=== PATIENT | male | born 1970 | race Two or more races ===

== ENCOUNTER 2023-06-07 20:56 | Inpatient (IN) | payer MEDICAID, OTHER ==
[~2023-06-07] VITALS: Ht 175.3 cm; Wt 90.3 kg
[2023-06-07 22:01] LABS: BASOPHILS # (AUTO) 0.1 K/uL (0.0-0.2); BASOPHILS % (AUTO) 0.4 % (0.0-2.0); EOSINOPHILS # (AUTO) 0.5 K/uL (0.0-0.7); EOSINOPHILS % (AUTO) 3.7 % (0.0-6.0); HEMATOCRIT 27 % (39-51); HEMOGLOBIN 8.4 g/dL (13.5-17.5); LYMPHOCYTES # (AUTO) 1.1 K/uL (0.8-4.8); LYMPHOCYTES % (AUTO) 7.8 % (20.0-44.0); MEAN CORPUSCULAR HEMOGLOBIN 26 PG (26.0-33.0); MEAN CORPUSCULAR HGB CONC 32 g/dl (31.0-36.0); MEAN CORPUSCULAR VOLUME 82 fL (80-96); MONOCYTES # (AUTO) 1.4 K/uL (0.1-1.30); MONOCYTES % (AUTO) 10.1 % (2.0-12.0); NEUTROPHILS # (AUTO) 10.6 K/uL (1.8-8.9); PLATELET COUNT (AUTO) 688 K/uL (150-450); RED BLOOD CELL COUNT(AUTO) 3.22 MIL/uL (4.5-6.0); RED CELL DISTRIBUTION WIDTH 15.7 % (11.5-15.0); WHITE BLOOD COUNT (AUTO) 13.6 K/uL (4.3-11.0)
[2023-06-07 22:10] LABS: INR 1.15 (0.91-1.10); PROTHROMBIN TIME 12.1 SECS (9.2-11.1)
[2023-06-07 22:20] LABS: CALCIUM, SERUM 8.8 mg/dL (8.5-10.1); CARBON DIOXIDE 27 mmol/L (21-32); CHLORIDE 96 mmol/L (98-107); CREATININE 0.7 mg/dL (0.6-1.3); GLUCOSE 120 mg/dL (74-106); POTASSIUM 4.3 mmol/L (3.5-5.1); SODIUM SERUM 130 mmol/L (136-145); UREA NITROGEN, BLOOD 13 mg/dL (7-18)
[2023-06-07 22:32] LABS: NT-PRO BNP 423 pg/mL (0-125)
[2023-06-07 23:17] LABS: BASOPHILS % (MANUAL) 0 % (0.0-2.0); EOSINOPHILS % (MANUAL) 2 % (0-4); LYMPHOCYTES % (MANUAL) 8 % (16-48); MONOCYTES % (MANUAL) 11 % (0-11.0); NEUTROPHILS % (MANUAL) 79 (42-76)
[2023-06-07 23:18] LABS: ANISOCYTOSIS 1+; PLATELET ESTIMATE ADEQUATE; STOMATOCYTES 1+
[2023-06-07] MEDS ORDERED: IV NS 0.9% 500 ML IV ONE (23:30)
[2023-06-07] MEDS ORDERED: PIPERACILLIN /TAZOBACTAM 3.375 G in IV D5W 50 ML IV ONE (23:30)
[2023-06-07] MEDS ORDERED: VANCOMYCIN 1 GM in IV D5W 250 ML IV ONE (23:30)
[2023-06-07] MEDS ORDERED: PIPERACI/TAZO 3.375GM/D5W 50ML PB IV ONE (23:36)
[2023-06-07] MEDS ORDERED: VANCOMYCIN 1 GM /D5W 250 ML PB IV ONE (23:56)
[2023-06-08] MEDS ORDERED: RIVA10TA PO (00:07)
[2023-06-08] MEDS ORDERED: HYDR-4075 PO (00:07)
[2023-06-08] MEDS ORDERED: ATOR20TA PO (00:07)
[2023-06-08] MEDS ORDERED: LACT10SO3 PO (00:07)
[2023-06-08] MEDS ORDERED: MAGN400T8 PO (00:07)
[2023-06-08] MEDS ORDERED: CHLO473M3 PO (00:07)
[2023-06-08] MEDS ORDERED: CALC-770 PO (00:07)
[2023-06-08] MEDS ORDERED: SUCR1ORA15 PO (00:07)
[2023-06-08] MEDS ORDERED: CHOL400T2 (00:07)
[2023-06-08] MEDS ORDERED: AMLO-212 PO (00:07)
[2023-06-08] MEDS ORDERED: ALBU2.5V13 NEB (00:07)
[2023-06-08] MEDS ORDERED: PHEN100C4 PO (00:07)
[2023-06-08] MEDS ORDERED: MULT9LIQ6 PO (00:07)
[2023-06-08] MEDS ORDERED: CARV12.52 PO (00:07)
[2023-06-08] MEDS ORDERED: PANT40TA49 PO (00:07)
[2023-06-08] MEDS ORDERED: ASCO500W7 PO (00:07)
[2023-06-08] MEDS ORDERED: CLOP75TA15 PO (00:07)
[2023-06-08 01:00] VITALS: BP 116/75; TEMP 99.1; O2SAT 100
[2023-06-08] MEDS ORDERED: MAG HYDROX/AL HYDROX/SIMETH 30 ML UDC PO PRN (01:00)
[2023-06-08] MEDS ORDERED: ACETAMINOPHEN 325 MG TABLET PO PRN (01:00)
[2023-06-08] MEDS ORDERED: ZOLPIDEM TARTRATE 5 MG TABLET PO PRN (01:00)
[2023-06-08] MEDS ORDERED: MAGNESIUM HYDROXIDE 30 ML UDC PO PRN (01:00)
[2023-06-08] MEDS ORDERED: ONDANSETRON HCL/PF 4 MG/2 ML VIAL IVP PRN (01:00)
[2023-06-08] MEDS ORDERED: Z GUARD REMEDY 4 OZ OINT TP PRN (01:00)
[2023-06-08] MEDS ORDERED: hydrALAZINE HCL 10 MG TABLET PO SCH (01:00)
[2023-06-08] MEDS: ALBUTEROL FS 2.5 MG/0.5 ML VIAL.NEB NEB SCH ×4 (02:20→20:16)
[2023-06-08] MEDS: IPRATROPIUM NEB FS 0.5 MG/2.5 ML AMPUL.NEB NEB SCH ×4 (02:20→20:16)
[2023-06-08] MEDS ORDERED: PHARMACY TO CHANGE PO MEDS TO GT/NG XX PRN (02:30)
[2023-06-08] MEDS ORDERED: CEFEPIME 2 GM in IV D5W 100 ML IV ONE (02:30)
[2023-06-08] MEDS ORDERED: hydrALAZINE HCL 10 MG TABLET PO PRN (02:30)
[2023-06-08] MEDS ORDERED: INSULIN REGULAR, HUMAN 100 UNIT/ML 3 ML VIAL SQ PRN (02:30)
[2023-06-08] MEDS ORDERED: DEXTROSE 50%-WATER 50 ML DISP.SYRIN IV PRN ×2 (02:30)
[2023-06-08] MEDS ORDERED: CEFEPIME 1 GM VIAL ONE (02:47)
[2023-06-08] MEDS ORDERED: MAG HYDROX/AL HYDROX/SIMETH 30 ML UDC GT PRN (03:21)
[2023-06-08] MEDS ORDERED: MAGNESIUM HYDROXIDE 30 ML UDC GT PRN (03:21)
[2023-06-08] MEDS ORDERED: ZOLPIDEM TARTRATE 5 MG TABLET GT PRN (03:22)
[2023-06-08] MEDS ORDERED: ACETAMINOPHEN 650 MG/20.3 ML UDC GT PRN (03:30)
[2023-06-08] MEDS ORDERED: hydrALAZINE HCL 10 MG TABLET GT PRN (03:50)
[2023-06-08 03:55] VITALS: BP 103/73; TEMP 98.3; O2SAT 100
[2023-06-08] MEDS: BLOOD SUGAR DIAGNOSTIC 1 EACH STRIP IN SCH ×3 (06:12→17:46)
[2023-06-08] MEDS: INSULIN REGULAR, HUMAN 100 UNIT/ML 3 ML VIAL SQ PRN ×3 (06:13→17:47)
[2023-06-08 07:30] VITALS: BP 125/71; TEMP 98.5; O2SAT 100
[2023-06-08] MEDS ORDERED: BLOOD SUGAR DIAGNOSTIC 1 EACH STRIP IN SCH (07:30)
[2023-06-08] MEDS: SUCRALFATE 1 G/10 ML UDC GT SCH ×4 (08:02→22:09)
[2023-06-08] MEDS: RIVAROXABAN 15 MG TABLET GT SCH ×2 (08:03→17:24)
[2023-06-08] MEDS: LACTULOSE 10 G/15 ML UDC (PYXIS) GT SCH ×2 (08:49→17:23)
[2023-06-08] MEDS: CHLORHEXIDINE GLUCONATE 15 ML UDC MM SCH ×2 (08:49→17:23)
[2023-06-08] MEDS: CALCIUM CARB 600MG /VIT D 1 EACH TABLET GT SCH ×2 (08:50→17:23)
[2023-06-08] MEDS: AMLODIPINE BESYLATE 5 MG TABLET GT SCH (08:50)
[2023-06-08] MEDS: MULTIVIT W/MINERALS 1 TAB TABLET GT SCH (08:50)
[2023-06-08] MEDS: MAGNESIUM OXIDE 400 MG TABLET GT SCH ×2 (08:50→17:23)
[2023-06-08] MEDS: CARVEDILOL 12.5 MG TABLET GT SCH ×2 (08:50→22:12)
[2023-06-08] MEDS: PHENYTOIN SUSP UDC 100 MG/4 ML UDC GT SCH ×2 (08:50→22:09)
[2023-06-08] MEDS: PROSOURCE / PROSTAT (PYXIS) 30 ML UDC GT SCH (08:52)
[2023-06-08 08:55] LABS: BASOPHILS % (AUTO) 0.3 % (0.0-2.0); EOSINOPHILS # (AUTO) 0.5 K/uL (0.0-0.7); EOSINOPHILS % (AUTO) 3.8 % (0.0-6.0); HEMATOCRIT 26 % (39-51); HEMOGLOBIN 8.5 g/dL (13.5-17.5); LYMPHOCYTES # (AUTO) 1.4 K/uL (0.8-4.8); LYMPHOCYTES % (AUTO) 11.4 % (20.0-44.0); MEAN CORPUSCULAR HEMOGLOBIN 27 PG (26.0-33.0); MEAN CORPUSCULAR HGB CONC 32 g/dl (31.0-36.0); MEAN CORPUSCULAR VOLUME 83 fL (80-96); MONOCYTES # (AUTO) 1.5 K/uL (0.1-1.30); MONOCYTES % (AUTO) 11.6 % (2.0-12.0); NEUTROPHILS # (AUTO) 9.2 K/uL (1.8-8.9); NEUTROPHILS % (AUTO) 72.9 % (43.0-81.0); PLATELET COUNT (AUTO) 691 K/uL (150-450); RED BLOOD CELL COUNT(AUTO) 3.19 MIL/uL (4.5-6.0); RED CELL DISTRIBUTION WIDTH 15.4 % (11.5-15.0); WHITE BLOOD COUNT (AUTO) 12.6 K/uL (4.3-11.0)
[2023-06-08] MEDS ORDERED: PANTOPRAZOLE 40 MG TABLET.DR PO SCH (09:00)
[2023-06-08] MEDS ORDERED: PANTOPRAZOLE 40 MG VIAL IV SCH (09:00)
[2023-06-08 09:35] LABS: CALCIUM, SERUM 9.2 mg/dL (8.5-10.1); CREATININE 0.7 mg/dL (0.6-1.3); MAGNESIUM 2.4 mg/dL (1.8-2.4); PHOSPHORUS 4.1 mg/dL (2.5-4.9)
[2023-06-08] MEDS: VANCOMYCIN 1.25 GM in IV D5W 250 ML IV SCH ×2 (10:24→18:10)
[2023-06-08] MEDS: DAKINS QUARTER STRENGTH (0.125%) 480 ML BOTTLE TOP SCH ×2 (10:25→16:00)
[2023-06-08] MEDS: CEFEPIME 2 GM in IV D5W 100 ML IV SCH ×2 (12:20→21:54)
[2023-06-08] MEDS: GLUCERNA 1.2 1,000 ML BOTTLE NG PRN (12:24)
[2023-06-08 16:00] VITALS: BP 129/62; TEMP 98.6; O2SAT 100
[2023-06-08 21:41] VITALS: BP 126/60; TEMP 98.4; O2SAT 100
[2023-06-08] MEDS: ASCORBIC ACID 500 MG TABLET GT SCH (22:10)
[2023-06-08] MEDS: CLOPIDOGREL BISULFATE 75 MG TABLET GT SCH (22:10)
[2023-06-08] MEDS: ATORVASTATIN 10 MG TABLET GT SCH (22:10)
[2023-06-09] MEDS: BLOOD SUGAR DIAGNOSTIC 1 EACH STRIP IN SCH ×4 (00:08→17:26)
[2023-06-09 00:23] VITALS: BP 132/69; TEMP 98.2; O2SAT 100
[2023-06-09] MEDS: INSULIN REGULAR, HUMAN 100 UNIT/ML 3 ML VIAL SQ PRN (00:28)
[2023-06-09] MEDS: ALBUTEROL FS 2.5 MG/0.5 ML VIAL.NEB NEB SCH ×4 (01:03→20:55)
[2023-06-09] MEDS: IPRATROPIUM NEB FS 0.5 MG/2.5 ML AMPUL.NEB NEB SCH ×4 (01:03→20:55)
[2023-06-09] MEDS: VANCOMYCIN 1.25 GM in IV D5W 250 ML IV SCH ×3 (03:00→23:00)
[2023-06-09] MEDS: CEFEPIME 2 GM in IV D5W 100 ML IV SCH ×3 (05:09→21:08)
[2023-06-09 06:32] VITALS: BP 135/90; TEMP 98; O2SAT 100
[2023-06-09 07:05] LABS: BASOPHILS % (AUTO) 0.3 % (0.0-2.0); EOSINOPHILS # (AUTO) 0.5 K/uL (0.0-0.7); HEMATOCRIT 23 % (39-51); HEMOGLOBIN 7.7 g/dL (13.5-17.5); LYMPHOCYTES # (AUTO) 1.2 K/uL (0.8-4.8); LYMPHOCYTES % (AUTO) 12.6 % (20.0-44.0); MEAN CORPUSCULAR HEMOGLOBIN 27 PG (26.0-33.0); MEAN CORPUSCULAR HGB CONC 33 g/dl (31.0-36.0); MEAN CORPUSCULAR VOLUME 82 fL (80-96); MONOCYTES # (AUTO) 1.1 K/uL (0.1-1.30); MONOCYTES % (AUTO) 11.1 % (2.0-12.0); NEUTROPHILS # (AUTO) 6.9 K/uL (1.8-8.9); PLATELET COUNT (AUTO) 625 K/uL (150-450); RED BLOOD CELL COUNT(AUTO) 2.85 MIL/uL (4.5-6.0); RED CELL DISTRIBUTION WIDTH 15.5 % (11.5-15.0); WHITE BLOOD COUNT (AUTO) 9.7 K/uL (4.3-11.0)
[2023-06-09] MEDS ORDERED: LIDOCAINE 1%-EPI 1:100,000 20 ML VIAL TP ONE (07:30)
[2023-06-09] MEDS ORDERED: SILVER NITRATE APPLICATOR 1 EA BOX TP SCH (07:30)
[2023-06-09 07:35] LABS: THYROID STIMULATING HORMONE 3.056 uIU/mL (0.358-3.74); URIC ACID 3.6 mg/dL (2.6-7.2)
[2023-06-09 07:36] LABS: CREATININE 0.7 mg/dL (0.6-1.3); MAGNESIUM 2.2 mg/dL (1.8-2.4); PHOSPHORUS 4.3 mg/dL (2.5-4.9); POTASSIUM 4.1 mmol/L (3.5-5.1)
[2023-06-09 08:00] VITALS: BP 137/61; TEMP 98.6; O2SAT 100
[2023-06-09] MEDS: RIVAROXABAN 15 MG TABLET GT SCH ×2 (08:00→18:13)
[2023-06-09] MEDS: DAKINS QUARTER STRENGTH (0.125%) 480 ML BOTTLE TOP SCH ×2 (08:44→08:54)
[2023-06-09] MEDS: PROSOURCE / PROSTAT (PYXIS) 30 ML UDC GT SCH (08:44)
[2023-06-09] MEDS: LACTULOSE 10 G/15 ML UDC (PYXIS) GT SCH ×2 (08:45→17:25)
[2023-06-09] MEDS: SUCRALFATE 1 G/10 ML UDC GT SCH ×4 (08:45→21:42)
[2023-06-09] MEDS: CHLORHEXIDINE GLUCONATE 15 ML UDC MM SCH ×2 (08:45→17:25)
[2023-06-09] MEDS: PHENYTOIN SUSP UDC 100 MG/4 ML UDC GT SCH ×2 (08:45→21:05)
[2023-06-09] MEDS: PANTOPRAZOLE 40 MG/PACK PACK NG SCH (08:46)
[2023-06-09] MEDS: CALCIUM CARB 600MG /VIT D 1 EACH TABLET GT SCH ×2 (08:46→17:25)
[2023-06-09] MEDS: MAGNESIUM OXIDE 400 MG TABLET GT SCH ×2 (08:46→17:25)
[2023-06-09] MEDS: MULTIVIT W/MINERALS 1 TAB TABLET GT SCH (08:47)
[2023-06-09] MEDS: AMLODIPINE BESYLATE 5 MG TABLET GT SCH (08:51)
[2023-06-09] MEDS: CARVEDILOL 12.5 MG TABLET GT SCH ×2 (08:52→21:05)
[2023-06-09] MEDS ORDERED: CELLULOSE,OXIDIZED 1 EACH EACH MC STA (12:28)
[2023-06-09 16:00] VITALS: BP 125/62; TEMP 98.5; O2SAT 99
[2023-06-09 20:00] VITALS: BP 136/77; TEMP 98; O2SAT 98
[2023-06-09] MEDS: ATORVASTATIN 10 MG TABLET GT SCH (21:42)
[2023-06-09] MEDS: ASCORBIC ACID 500 MG TABLET GT SCH (21:43)
[2023-06-09] MEDS: CLOPIDOGREL BISULFATE 75 MG TABLET GT SCH (21:47)
[2023-06-09] MEDS ORDERED: VANCOMYCIN 1.25 GM in IV D5W 250 ML IV SCH (23:00)
[2023-06-10] VITALS: BP 129/81; TEMP 98.6; O2SAT 100
[2023-06-10] MEDS: BLOOD SUGAR DIAGNOSTIC 1 EACH STRIP IN SCH ×4 (00:18→17:24)
[2023-06-10] MEDS: INSULIN REGULAR, HUMAN 100 UNIT/ML 3 ML VIAL SQ PRN ×4 (00:20→17:25)
[2023-06-10] MEDS: IPRATROPIUM NEB FS 0.5 MG/2.5 ML AMPUL.NEB NEB SCH ×4 (02:10→19:46)
[2023-06-10] MEDS: ALBUTEROL FS 2.5 MG/0.5 ML VIAL.NEB NEB SCH ×4 (02:10→19:46)
[2023-06-10] MEDS: GLUCERNA 1.2 1,000 ML BOTTLE NG PRN (03:18)
[2023-06-10 04:00] VITALS: BP 129/66; TEMP 98.5; O2SAT 100
[2023-06-10] MEDS: CEFEPIME 2 GM in IV D5W 100 ML IV SCH ×3 (05:34→21:17)
[2023-06-10 06:07] LABS: CALCIUM, SERUM 9.2 mg/dL (8.5-10.1); CREATININE 0.7 mg/dL (0.6-1.3); POTASSIUM 4.3 mmol/L (3.5-5.1)
[2023-06-10] MEDS: SUCRALFATE 1 G/10 ML UDC GT SCH ×4 (07:51→21:15)
[2023-06-10] MEDS: PROSOURCE / PROSTAT (PYXIS) 30 ML UDC GT SCH (07:51)
[2023-06-10 08:00] VITALS: BP 133/77; TEMP 97.9; O2SAT 99
[2023-06-10] MEDS: RIVAROXABAN 15 MG TABLET GT SCH ×2 (08:38→17:29)
[2023-06-10] MEDS: CHLORHEXIDINE GLUCONATE 15 ML UDC MM SCH ×2 (08:39→16:20)
[2023-06-10] MEDS: LACTULOSE 10 G/15 ML UDC (PYXIS) GT SCH ×2 (08:39→16:20)
[2023-06-10] MEDS: PHENYTOIN SUSP UDC 100 MG/4 ML UDC GT SCH ×2 (08:39→21:15)
[2023-06-10] MEDS: MAGNESIUM OXIDE 400 MG TABLET GT SCH ×2 (08:39→16:20)
[2023-06-10] MEDS: PANTOPRAZOLE 40 MG/PACK PACK NG SCH (08:39)
[2023-06-10] MEDS: CALCIUM CARB 600MG /VIT D 1 EACH TABLET GT SCH ×2 (08:40→16:20)
[2023-06-10] MEDS: MULTIVIT W/MINERALS 1 TAB TABLET GT SCH (08:40)
[2023-06-10] MEDS: CARVEDILOL 12.5 MG TABLET GT SCH ×2 (08:41→21:14)
[2023-06-10] MEDS: AMLODIPINE BESYLATE 5 MG TABLET GT SCH (08:41)
[2023-06-10] MEDS: DAKINS QUARTER STRENGTH (0.125%) 480 ML BOTTLE TOP SCH (10:31)
[2023-06-10] MEDS: VANCOMYCIN 1.25 GM in IV D5W 250 ML IV SCH ×2 (11:08→23:48)
[2023-06-10 11:13] LABS: BASOPHILS # (AUTO) 0.1 K/uL (0.0-0.2); EOSINOPHILS # (AUTO) 0.4 K/uL (0.0-0.7); EOSINOPHILS % (AUTO) 4.2 % (0.0-6.0); HEMATOCRIT 24 % (39-51); HEMOGLOBIN 7.8 g/dL (13.5-17.5); LYMPHOCYTES # (AUTO) 0.9 K/uL (0.8-4.8); MEAN CORPUSCULAR HEMOGLOBIN 27 PG (26.0-33.0); MEAN CORPUSCULAR HGB CONC 32 g/dl (31.0-36.0); MEAN CORPUSCULAR VOLUME 82 fL (80-96); MONOCYTES # (AUTO) 0.9 K/uL (0.1-1.30); MONOCYTES % (AUTO) 10.2 % (2.0-12.0); NEUTROPHILS # (AUTO) 6.3 K/uL (1.8-8.9); NEUTROPHILS % (AUTO) 73.6 % (43.0-81.0); PLATELET COUNT (AUTO) 636 K/uL (150-450); RED BLOOD CELL COUNT(AUTO) 2.94 MIL/uL (4.5-6.0); RED CELL DISTRIBUTION WIDTH 15.6 % (11.5-15.0); WHITE BLOOD COUNT (AUTO) 8.6 K/uL (4.3-11.0)
[2023-06-10 16:15] VITALS: BP 136/74; TEMP 98.2; O2SAT 99
[2023-06-10 20:00] VITALS: BP 142/54; TEMP 98.1; O2SAT 100
[2023-06-10] MEDS ORDERED: NA PHOS,M-B/NA PHOS,DI-BA 1 EA ENEMA RC ONE (20:00)
[2023-06-10] MEDS: ASCORBIC ACID 500 MG TABLET GT SCH (21:14)
[2023-06-10] MEDS: CLOPIDOGREL BISULFATE 75 MG TABLET GT SCH (21:14)
[2023-06-10] MEDS: ATORVASTATIN 10 MG TABLET GT SCH (21:15)
[2023-06-11] VITALS: BP 131/88; TEMP 98.7; O2SAT 100
[2023-06-11] MEDS: BLOOD SUGAR DIAGNOSTIC 1 EACH STRIP IN SCH ×5 (00:47→23:17)
[2023-06-11 04:00] VITALS: BP 146/77; TEMP 98.5; O2SAT 100
[2023-06-11] MEDS: CEFEPIME 2 GM in IV D5W 100 ML IV SCH ×3 (05:12→20:57)
[2023-06-11 07:00] VITALS: BP 148/71; TEMP 97.9; O2SAT 100
[2023-06-11 07:49] LABS: CALCIUM, SERUM 9.1 mg/dL (8.5-10.1); CREATININE 0.6 mg/dL (0.6-1.3); MAGNESIUM 2.2 mg/dL (1.8-2.4); PHOSPHORUS 4.4 mg/dL (2.5-4.9); POTASSIUM 3.8 mmol/L (3.5-5.1)
[2023-06-11 08:20] LABS: THYROID STIMULATING HORMONE 2.038 uIU/mL (0.358-3.74); URIC ACID 3.5 mg/dL (2.6-7.2)
[2023-06-11] MEDS: SUCRALFATE 1 G/10 ML UDC GT SCH ×4 (09:12→21:24)
[2023-06-11] MEDS: PHENYTOIN SUSP UDC 100 MG/4 ML UDC GT SCH ×2 (09:12→21:24)
[2023-06-11] MEDS: LACTULOSE 10 G/15 ML UDC (PYXIS) GT SCH ×2 (09:13→17:14)
[2023-06-11] MEDS: CARVEDILOL 12.5 MG TABLET GT SCH ×2 (09:13→21:24)
[2023-06-11] MEDS: MULTIVIT W/MINERALS 1 TAB TABLET GT SCH (09:13)
[2023-06-11] MEDS: PANTOPRAZOLE 40 MG/PACK PACK NG SCH (09:13)
[2023-06-11] MEDS: CALCIUM CARB 600MG /VIT D 1 EACH TABLET GT SCH ×2 (09:13→17:14)
[2023-06-11] MEDS: MAGNESIUM OXIDE 400 MG TABLET GT SCH ×2 (09:14→17:14)
[2023-06-11] MEDS: AMLODIPINE BESYLATE 5 MG TABLET GT SCH (09:14)
[2023-06-11] MEDS: RIVAROXABAN 15 MG TABLET GT SCH ×2 (09:15→17:17)
[2023-06-11] MEDS: CHLORHEXIDINE GLUCONATE 15 ML UDC MM SCH ×2 (09:19→17:14)
[2023-06-11] MEDS: PROSOURCE / PROSTAT (PYXIS) 30 ML UDC GT SCH (09:19)
[2023-06-11] MEDS: DAKINS QUARTER STRENGTH (0.125%) 480 ML BOTTLE TOP SCH (09:26)
[2023-06-11] MEDS: GLUCERNA 1.2 1,000 ML BOTTLE NG PRN (09:43)
[2023-06-11 11:30] VITALS: BP 139/80; TEMP 98.2; O2SAT 100
[2023-06-11 13:07] LABS: FERRITIN 176 ng/mL (8-388)
[2023-06-11] MEDS: VANCOMYCIN 1 GM in IV D5W 250 ML IV SCH (14:59)
[2023-06-11 16:00] VITALS: BP 126/81; TEMP 98.4; O2SAT 99
[2023-06-11 20:00] VITALS: BP 125/76; TEMP 99.1; O2SAT 98; O2SAT 99
[2023-06-11] MEDS: ASCORBIC ACID 500 MG TABLET GT SCH (21:24)
[2023-06-11] MEDS: ATORVASTATIN 10 MG TABLET GT SCH (21:25)
[2023-06-11] MEDS: INSULIN REGULAR, HUMAN 100 UNIT/ML 3 ML VIAL SQ PRN (23:18)
[2023-06-12] VITALS (8 sets, daily range): BP systolic 114–138; BP diastolic 63–82; TEMP 98.1–98.6; O2SAT 94–100
[2023-06-12] MEDS: VANCOMYCIN 1 GM in IV D5W 250 ML IV SCH ×2 (02:16→14:32)
[2023-06-12] MEDS: CEFEPIME 2 GM in IV D5W 100 ML IV SCH ×3 (04:19→20:51)
[2023-06-12] MEDS: BLOOD SUGAR DIAGNOSTIC 1 EACH STRIP IN SCH ×3 (05:12→19:59)
[2023-06-12] MEDS: INSULIN REGULAR, HUMAN 100 UNIT/ML 3 ML VIAL SQ PRN ×3 (05:13→19:59)
[2023-06-12 05:49] LABS: BASOPHILS % (AUTO) 0.5 % (0.0-2.0); EOSINOPHILS # (AUTO) 0.6 K/uL (0.0-0.7); EOSINOPHILS % (AUTO) 5.6 % (0.0-6.0); HEMATOCRIT 25 % (39-51); HEMOGLOBIN 7.9 g/dL (13.5-17.5); LYMPHOCYTES # (AUTO) 1.2 K/uL (0.8-4.8); LYMPHOCYTES % (AUTO) 11.7 % (20.0-44.0); MEAN CORPUSCULAR HEMOGLOBIN 26 PG (26.0-33.0); MEAN CORPUSCULAR HGB CONC 32 g/dl (31.0-36.0); MEAN CORPUSCULAR VOLUME 82 fL (80-96); MONOCYTES # (AUTO) 1.1 K/uL (0.1-1.30); MONOCYTES % (AUTO) 11.4 % (2.0-12.0); NEUTROPHILS # (AUTO) 7.1 K/uL (1.8-8.9); NEUTROPHILS % (AUTO) 70.8 % (43.0-81.0); PLATELET COUNT (AUTO) 619 K/uL (150-450); RED CELL DISTRIBUTION WIDTH 15.8 % (11.5-15.0)
[2023-06-12 06:06] LABS: CALCIUM, SERUM 8.9 mg/dL (8.5-10.1); CREATININE 0.7 mg/dL (0.6-1.3); POTASSIUM 4.1 mmol/L (3.5-5.1)
[2023-06-12] MEDS: SUCRALFATE 1 G/10 ML UDC GT SCH ×4 (07:30→21:43)
[2023-06-12] MEDS: PROSOURCE / PROSTAT (PYXIS) 30 ML UDC GT SCH (08:00)
[2023-06-12] MEDS: RIVAROXABAN 15 MG TABLET GT SCH ×2 (08:00→17:49)
[2023-06-12] MEDS: CALCIUM CARB 600MG /VIT D 1 EACH TABLET GT SCH ×3 (08:34→17:56)
[2023-06-12] MEDS ORDERED: IOHEXOL-300 100 ML VIAL IV ONE (09:36)
[2023-06-12] MEDS ORDERED: IV NS 0.9% 250 ML IV ONE (09:36)
[2023-06-12 13:06] LABS: IMMUNOGLOBULIN A, SERUM 771 mg/dL (90-386); IMMUNOGLOBULIN G, SERUM 1982 mg/dL (603-1613); IMMUNOGLOBULIN M, SERUM 66 mg/dL (20-172)
[2023-06-12] MEDS: CHLORHEXIDINE GLUCONATE 15 ML UDC MM SCH ×2 (13:13→17:56)
[2023-06-12] MEDS: LACTULOSE 10 G/15 ML UDC (PYXIS) GT SCH ×2 (13:13→17:56)
[2023-06-12] MEDS: PHENYTOIN SUSP UDC 100 MG/4 ML UDC GT SCH ×2 (13:13→21:43)
[2023-06-12] MEDS: MULTIVIT W/MINERALS 1 TAB TABLET GT SCH (13:14)
[2023-06-12] MEDS: MAGNESIUM OXIDE 400 MG TABLET GT SCH ×2 (13:14→17:56)
[2023-06-12] MEDS: PANTOPRAZOLE 40 MG/PACK PACK NG SCH (13:14)
[2023-06-12] MEDS: AMLODIPINE BESYLATE 5 MG TABLET GT SCH (13:15)
[2023-06-12] MEDS: CARVEDILOL 12.5 MG TABLET GT SCH ×2 (13:15→21:43)
[2023-06-12] MEDS: DAKINS QUARTER STRENGTH (0.125%) 480 ML BOTTLE TOP SCH (13:17)
[2023-06-12] MEDS: SOD FERRIC GLUC 125 MG in IV NS 0.9% 100 ML IV SCH (16:20)
[2023-06-12] MEDS: GLUCERNA 1.2 1,000 ML BOTTLE NG PRN (20:00)
[2023-06-12] MEDS: ATORVASTATIN 10 MG TABLET GT SCH (21:43)
[2023-06-12] MEDS: ASCORBIC ACID 500 MG TABLET GT SCH (21:43)
[2023-06-13] VITALS: BP 132/86; TEMP 98.1; O2SAT 100
[2023-06-13] MEDS: BLOOD SUGAR DIAGNOSTIC 1 EACH STRIP IN SCH ×5 (00:47→23:09)
[2023-06-13 01:09] LABS: FOLIC ACID 19.2 ng/mL (>3.0)
[2023-06-13] MEDS: INSULIN REGULAR, HUMAN 100 UNIT/ML 3 ML VIAL SQ PRN (01:49)
[2023-06-13] MEDS: VANCOMYCIN 1 GM in IV D5W 250 ML IV SCH ×3 (02:46→14:17)
[2023-06-13 04:00] VITALS: BP 140/92; TEMP 98; O2SAT 100
[2023-06-13] MEDS: CEFEPIME 2 GM in IV D5W 100 ML IV SCH ×3 (05:15→20:52)
[2023-06-13 07:00] VITALS: BP 123/70; TEMP 97.4; O2SAT 100
[2023-06-13] MEDS: RIVAROXABAN 15 MG TABLET GT SCH (08:00)
[2023-06-13 08:21] LABS: BASOPHILS # (AUTO) 0.1 K/uL (0.0-0.2); BASOPHILS % (AUTO) 0.7 % (0.0-2.0); EOSINOPHILS # (AUTO) 0.7 K/uL (0.0-0.7); EOSINOPHILS % (AUTO) 7.2 % (0.0-6.0); HEMATOCRIT 27 % (39-51); HEMOGLOBIN 8.6 g/dL (13.5-17.5); LYMPHOCYTES # (AUTO) 1.2 K/uL (0.8-4.8); LYMPHOCYTES % (AUTO) 11.8 % (20.0-44.0); MEAN CORPUSCULAR HEMOGLOBIN 26 PG (26.0-33.0); MEAN CORPUSCULAR HGB CONC 32 g/dl (31.0-36.0); MEAN CORPUSCULAR VOLUME 82 fL (80-96); MONOCYTES # (AUTO) 1.1 K/uL (0.1-1.30); MONOCYTES % (AUTO) 10.2 % (2.0-12.0); NEUTROPHILS # (AUTO) 7.3 K/uL (1.8-8.9); NEUTROPHILS % (AUTO) 70.1 % (43.0-81.0); PLATELET COUNT (AUTO) 632 K/uL (150-450); RED BLOOD CELL COUNT(AUTO) 3.26 MIL/uL (4.5-6.0); RED CELL DISTRIBUTION WIDTH 15.5 % (11.5-15.0); WHITE BLOOD COUNT (AUTO) 10.3 K/uL (4.3-11.0)
[2023-06-13] MEDS: LACTULOSE 10 G/15 ML UDC (PYXIS) GT SCH ×2 (08:23→16:32)
[2023-06-13] MEDS: MULTIVIT W/MINERALS 1 TAB TABLET GT SCH (08:23)
[2023-06-13] MEDS: PROSOURCE / PROSTAT (PYXIS) 30 ML UDC GT SCH (08:23)
[2023-06-13] MEDS: SUCRALFATE 1 G/10 ML UDC GT SCH ×4 (08:23→21:23)
[2023-06-13] MEDS: CHLORHEXIDINE GLUCONATE 15 ML UDC MM SCH ×2 (08:23→16:32)
[2023-06-13] MEDS: PANTOPRAZOLE 40 MG/PACK PACK NG SCH (08:23)
[2023-06-13] MEDS: PHENYTOIN SUSP UDC 100 MG/4 ML UDC GT SCH ×2 (08:23→20:52)
[2023-06-13] MEDS: MAGNESIUM OXIDE 400 MG TABLET GT SCH ×2 (08:24→16:32)
[2023-06-13] MEDS: AMLODIPINE BESYLATE 5 MG TABLET GT SCH (08:24)
[2023-06-13] MEDS: CALCIUM CARB 600MG /VIT D 1 EACH TABLET GT SCH ×2 (08:24→16:32)
[2023-06-13] MEDS: CARVEDILOL 12.5 MG TABLET GT SCH ×2 (08:24→20:52)
[2023-06-13] MEDS: DAKINS QUARTER STRENGTH (0.125%) 480 ML BOTTLE TOP SCH (08:25)
[2023-06-13 08:31] LABS: CALCIUM, SERUM 9.2 mg/dL (8.5-10.1); CREATININE 0.7 mg/dL (0.6-1.3); POTASSIUM 4.1 mmol/L (3.5-5.1)
[2023-06-13 11:30] VITALS: BP 128/69; TEMP 97.3; O2SAT 100
[2023-06-13] MEDS: SOD FERRIC GLUC 125 MG in IV NS 0.9% 100 ML IV SCH (13:17)
[2023-06-13] MEDS ORDERED: ENOXAPARIN SODIUM 100 MG/ML DISP.SYRIN SQ SCH (15:00)
[2023-06-13] MEDS: GLUCERNA 1.2 1,000 ML BOTTLE NG PRN (15:30)
[2023-06-13 16:00] VITALS: BP 131/66; TEMP 97.9; O2SAT 100
[2023-06-13] MEDS: ENOXAPARIN SODIUM 100 MG/ML DISP.SYRIN SQ SCH (16:53)
[2023-06-13 20:00] VITALS: BP 135/79; TEMP 98.1; O2SAT 100
[2023-06-13] MEDS: ASCORBIC ACID 500 MG TABLET GT SCH (21:23)
[2023-06-13] MEDS: ATORVASTATIN 10 MG TABLET GT SCH (21:23)
[2023-06-14] VITALS: BP 127/80; TEMP 98.1; O2SAT 98
[2023-06-14] MEDS: VANCOMYCIN 1 GM in IV D5W 250 ML IV SCH ×2 (01:07→13:00)
[2023-06-14 04:00] VITALS: BP 129/77; TEMP 98.2; O2SAT 99
[2023-06-14] MEDS: CEFEPIME 2 GM in IV D5W 100 ML IV SCH ×3 (04:33→21:07)
[2023-06-14] MEDS: BLOOD SUGAR DIAGNOSTIC 1 EACH STRIP IN SCH ×4 (05:22→23:33)
[2023-06-14 07:00] VITALS: BP 140/72; TEMP 97.8; O2SAT 100
[2023-06-14] MEDS: PROSOURCE / PROSTAT (PYXIS) 30 ML UDC GT SCH (07:45)
[2023-06-14] MEDS: SUCRALFATE 1 G/10 ML UDC GT SCH ×4 (07:45→21:12)
[2023-06-14] MEDS: CALCIUM CARB 600MG /VIT D 1 EACH TABLET GT SCH ×2 (08:13→16:23)
[2023-06-14] MEDS: MULTIVIT W/MINERALS 1 TAB TABLET GT SCH (08:13)
[2023-06-14] MEDS: CHLORHEXIDINE GLUCONATE 15 ML UDC MM SCH ×2 (08:13→16:23)
[2023-06-14] MEDS: MAGNESIUM OXIDE 400 MG TABLET GT SCH ×2 (08:13→16:23)
[2023-06-14] MEDS: PHENYTOIN SUSP UDC 100 MG/4 ML UDC GT SCH ×2 (08:13→21:10)
[2023-06-14] MEDS: LACTULOSE 10 G/15 ML UDC (PYXIS) GT SCH ×2 (08:13→16:23)
[2023-06-14] MEDS: PANTOPRAZOLE 40 MG/PACK PACK NG SCH (08:13)
[2023-06-14] MEDS: AMLODIPINE BESYLATE 5 MG TABLET GT SCH (08:14)
[2023-06-14] MEDS: CARVEDILOL 12.5 MG TABLET GT SCH ×2 (08:14→21:11)
[2023-06-14] MEDS: DAKINS QUARTER STRENGTH (0.125%) 480 ML BOTTLE TOP SCH (08:16)
[2023-06-14] MEDS: ENOXAPARIN SODIUM 100 MG/ML DISP.SYRIN SQ SCH ×2 (08:23→16:24)
[2023-06-14 10:36] LABS: CALCIUM, SERUM 8.8 mg/dL (8.5-10.1); CREATININE 0.6 mg/dL (0.6-1.3); POTASSIUM 4.4 mmol/L (3.5-5.1)
[2023-06-14] MEDS: INSULIN REGULAR, HUMAN 100 UNIT/ML 3 ML VIAL SQ PRN ×3 (11:10→23:34)
[2023-06-14] MEDS: SOD FERRIC GLUC 125 MG in IV NS 0.9% 100 ML IV SCH (14:14)
[2023-06-14 16:00] VITALS: BP 127/64; TEMP 98.6; O2SAT 99
[2023-06-14] MEDS: GLUCERNA 1.2 1,000 ML BOTTLE NG PRN (17:13)
[2023-06-14 20:34] VITALS: BP 124/74; TEMP 98.2; O2SAT 77
[2023-06-14] MEDS: ASCORBIC ACID 500 MG TABLET GT SCH (21:12)
[2023-06-14] MEDS: ATORVASTATIN 10 MG TABLET GT SCH (21:12)
[2023-06-15 00:28] VITALS: BP 125/64; TEMP 98.4; O2SAT 100
[2023-06-15] MEDS: VANCOMYCIN 1 GM in IV D5W 250 ML IV SCH (02:13)
[2023-06-15] MEDS: IV D5/0.45 NACL 1,000 ML IV PRN (03:49)
[2023-06-15 04:41] VITALS: BP 120/63; TEMP 98.6; O2SAT 100
[2023-06-15] MEDS: CEFEPIME 2 GM in IV D5W 100 ML IV SCH ×3 (05:19→20:47)
[2023-06-15] MEDS: INSULIN REGULAR, HUMAN 100 UNIT/ML 3 ML VIAL SQ PRN (05:32)
[2023-06-15] MEDS: BLOOD SUGAR DIAGNOSTIC 1 EACH STRIP IN SCH ×3 (05:32→17:58)
[2023-06-15 06:17] LABS: BASOPHILS # (AUTO) 0.1 K/uL (0.0-0.2); BASOPHILS % (AUTO) 0.7 % (0.0-2.0); EOSINOPHILS # (AUTO) 0.7 K/uL (0.0-0.7); EOSINOPHILS % (AUTO) 6.6 % (0.0-6.0); HEMATOCRIT 24 % (39-51); HEMOGLOBIN 7.8 g/dL (13.5-17.5); LYMPHOCYTES # (AUTO) 1.3 K/uL (0.8-4.8); LYMPHOCYTES % (AUTO) 12.7 % (20.0-44.0); MEAN CORPUSCULAR HEMOGLOBIN 27 PG (26.0-33.0); MEAN CORPUSCULAR HGB CONC 32 g/dl (31.0-36.0); MEAN CORPUSCULAR VOLUME 82 fL (80-96); MONOCYTES # (AUTO) 1.1 K/uL (0.1-1.30); MONOCYTES % (AUTO) 10.7 % (2.0-12.0); NEUTROPHILS # (AUTO) 7.2 K/uL (1.8-8.9); NEUTROPHILS % (AUTO) 69.3 % (43.0-81.0); PLATELET COUNT (AUTO) 548 K/uL (150-450); RED BLOOD CELL COUNT(AUTO) 2.93 MIL/uL (4.5-6.0); RED CELL DISTRIBUTION WIDTH 15.8 % (11.5-15.0); WHITE BLOOD COUNT (AUTO) 10.4 K/uL (4.3-11.0)
[2023-06-15 06:41] LABS: CALCIUM, SERUM 8.7 mg/dL (8.5-10.1); CREATININE 0.7 mg/dL (0.6-1.3); POTASSIUM 4.1 mmol/L (3.5-5.1)
[2023-06-15 07:00] VITALS: BP 119/65; TEMP 98.6; O2SAT 100
[2023-06-15] MEDS: SUCRALFATE 1 G/10 ML UDC GT SCH ×4 (09:57→21:08)
[2023-06-15] MEDS: LACTULOSE 10 G/15 ML UDC (PYXIS) GT SCH ×2 (09:58→17:57)
[2023-06-15] MEDS: PHENYTOIN SUSP UDC 100 MG/4 ML UDC GT SCH ×2 (09:58→20:32)
[2023-06-15] MEDS: CHLORHEXIDINE GLUCONATE 15 ML UDC MM SCH ×2 (09:58→17:57)
[2023-06-15] MEDS: ENOXAPARIN SODIUM 100 MG/ML DISP.SYRIN SQ SCH ×2 (09:58→17:00)
[2023-06-15] MEDS: PROSOURCE / PROSTAT (PYXIS) 30 ML UDC GT SCH (09:58)
[2023-06-15] MEDS: MULTIVIT W/MINERALS 1 TAB TABLET GT SCH (09:59)
[2023-06-15] MEDS: PANTOPRAZOLE 40 MG/PACK PACK NG SCH (09:59)
[2023-06-15] MEDS: CALCIUM CARB 600MG /VIT D 1 EACH TABLET GT SCH ×2 (09:59→17:57)
[2023-06-15] MEDS: AMLODIPINE BESYLATE 5 MG TABLET GT SCH (09:59)
[2023-06-15] MEDS: CARVEDILOL 12.5 MG TABLET GT SCH ×2 (09:59→20:16)
[2023-06-15] MEDS: MAGNESIUM OXIDE 400 MG TABLET GT SCH ×2 (10:00→17:57)
[2023-06-15] MEDS: DAKINS QUARTER STRENGTH (0.125%) 480 ML BOTTLE TOP SCH (10:46)
[2023-06-15 12:00] VITALS: BP 114/89; TEMP 98.4; O2SAT 100
[2023-06-15 16:00] VITALS: BP 121/82; TEMP 99.1; O2SAT 100
[2023-06-15] MEDS: SOD FERRIC GLUC 125 MG in IV NS 0.9% 100 ML IV SCH (16:49)
[2023-06-15] MEDS: ASCORBIC ACID 500 MG TABLET GT SCH (21:08)
[2023-06-15] MEDS: ATORVASTATIN 10 MG TABLET GT SCH (21:08)
[2023-06-16] VITALS: BP 115/67; TEMP 98.5; O2SAT 100
[2023-06-16] MEDS: BLOOD SUGAR DIAGNOSTIC 1 EACH STRIP IN SCH ×4 (00:27→17:33)
[2023-06-16 02:00] VITALS: BP 137/66; TEMP 98.6; O2SAT 100
[2023-06-16] MEDS ORDERED: VANCOMYCIN HCL 0.75 GM in IV D5W 250 ML IV SCH (02:00)
[2023-06-16] MEDS: IV D5/0.45 NACL 1,000 ML IV PRN (03:49)
[2023-06-16] MEDS: CEFEPIME 2 GM in IV D5W 100 ML IV SCH ×3 (05:10→21:04)
[2023-06-16 06:50] LABS: BASOPHILS # (AUTO) 0.1 K/uL (0.0-0.2); BASOPHILS % (AUTO) 0.6 % (0.0-2.0); EOSINOPHILS # (AUTO) 0.7 K/uL (0.0-0.7); HEMATOCRIT 23 % (39-51); HEMOGLOBIN 7.5 g/dL (13.5-17.5); LYMPHOCYTES # (AUTO) 1.4 K/uL (0.8-4.8); LYMPHOCYTES % (AUTO) 13.8 % (20.0-44.0); MEAN CORPUSCULAR HEMOGLOBIN 27 PG (26.0-33.0); MEAN CORPUSCULAR HGB CONC 33 g/dl (31.0-36.0); MEAN CORPUSCULAR VOLUME 82 fL (80-96); MONOCYTES # (AUTO) 1.2 K/uL (0.1-1.30); MONOCYTES % (AUTO) 11.9 % (2.0-12.0); NEUTROPHILS # (AUTO) 6.5 K/uL (1.8-8.9); NEUTROPHILS % (AUTO) 66.7 % (43.0-81.0); PLATELET COUNT (AUTO) 527 K/uL (150-450); RED BLOOD CELL COUNT(AUTO) 2.83 MIL/uL (4.5-6.0); WHITE BLOOD COUNT (AUTO) 9.8 K/uL (4.3-11.0)
[2023-06-16 06:58] LABS: CALCIUM, SERUM 8.7 mg/dL (8.5-10.1); CREATININE 0.6 mg/dL (0.6-1.3); POTASSIUM 4.2 mmol/L (3.5-5.1)
[2023-06-16] MEDS ORDERED: LIDOCAINE 1%-EPI 1:100,000 50 ML VIAL IJ ONE (07:30)
[2023-06-16] MEDS: SUCRALFATE 1 G/10 ML UDC GT SCH ×4 (07:30→21:42)
[2023-06-16 08:00] VITALS: BP 124/80; TEMP 97.6; O2SAT 99
[2023-06-16] MEDS: PROSOURCE / PROSTAT (PYXIS) 30 ML UDC GT SCH (08:00)
[2023-06-16] MEDS: PANTOPRAZOLE 40 MG/PACK PACK NG SCH (09:00)
[2023-06-16] MEDS: ENOXAPARIN SODIUM 100 MG/ML DISP.SYRIN SQ SCH ×2 (09:00→17:00)
[2023-06-16] MEDS: LACTULOSE 10 G/15 ML UDC (PYXIS) GT SCH ×2 (09:00→17:32)
[2023-06-16] MEDS: CALCIUM CARB 600MG /VIT D 1 EACH TABLET GT SCH ×2 (09:00→17:32)
[2023-06-16] MEDS: MULTIVIT W/MINERALS 1 TAB TABLET GT SCH (09:00)
[2023-06-16] MEDS: AMLODIPINE BESYLATE 5 MG TABLET GT SCH (09:00)
[2023-06-16] MEDS: PHENYTOIN SUSP UDC 100 MG/4 ML UDC GT SCH ×2 (09:00→21:42)
[2023-06-16] MEDS: CARVEDILOL 12.5 MG TABLET GT SCH ×2 (09:00→21:42)
[2023-06-16] MEDS: MAGNESIUM OXIDE 400 MG TABLET GT SCH ×3 (09:00→17:37)
[2023-06-16] MEDS: CHLORHEXIDINE GLUCONATE 15 ML UDC MM SCH ×2 (09:20→17:32)
[2023-06-16] MEDS: DAKINS QUARTER STRENGTH (0.125%) 480 ML BOTTLE TOP SCH (09:20)
[2023-06-16] MEDS ORDERED: VANCOMYCIN 1 GM in IV D5W 250ml IV ONE (12:00)
[2023-06-16 15:41] VITALS: BP_SYST 119; BP_SYST 124; BP_DIAS 61; BP_DIAS 62; TEMP 97.6; TEMP 98.2; O2SAT 99
[2023-06-16] MEDS: SOD FERRIC GLUC 125 MG in IV NS 0.9% 100 ML IV SCH (15:46)
[2023-06-16] MEDS: GLUCERNA 1.2 1,000 ML BOTTLE NG PRN (17:37)
[2023-06-16 20:00] VITALS: BP 137/66; TEMP 98.6; O2SAT 100
[2023-06-16] MEDS: ATORVASTATIN 10 MG TABLET GT SCH (21:42)
[2023-06-16] MEDS: ASCORBIC ACID 500 MG TABLET GT SCH (21:42)
[2023-06-16 23:57] VITALS: BP 128/76; TEMP 99.1; O2SAT 98
[2023-06-17] VITALS: BP 128/76; TEMP 99.1; O2SAT 98
[2023-06-17] MEDS: VANCOMYCIN HCL 0.75 GM in IV D5W 250 ML IV SCH ×3 (01:02→23:49)
[2023-06-17] MEDS: BLOOD SUGAR DIAGNOSTIC 1 EACH STRIP IN SCH ×4 (01:02→18:03)
[2023-06-17] MEDS: INSULIN REGULAR, HUMAN 100 UNIT/ML 3 ML VIAL SQ PRN ×2 (01:02→05:58)
[2023-06-17 04:00] VITALS: BP 118/65; TEMP 98.4; O2SAT 100
[2023-06-17 04:06] VITALS: BP 118/65; TEMP 98.4; O2SAT 100
[2023-06-17] MEDS: CEFEPIME 2 GM in IV D5W 100 ML IV SCH ×3 (04:28→20:38)
[2023-06-17] MEDS: IV D5/0.45 NACL 1,000 ML IV PRN (05:54)
[2023-06-17 07:07] LABS: BASOPHILS # (AUTO) 0.1 K/uL (0.0-0.2); BASOPHILS % (AUTO) 0.5 % (0.0-2.0); EOSINOPHILS # (AUTO) 0.5 K/uL (0.0-0.7); EOSINOPHILS % (AUTO) 4.3 % (0.0-6.0); HEMATOCRIT 29 % (39-51); LYMPHOCYTES # (AUTO) 1.2 K/uL (0.8-4.8); MEAN CORPUSCULAR HEMOGLOBIN 26 PG (26.0-33.0); MEAN CORPUSCULAR HGB CONC 32 g/dl (31.0-36.0); MEAN CORPUSCULAR VOLUME 83 fL (80-96); MONOCYTES # (AUTO) 1.1 K/uL (0.1-1.30); MONOCYTES % (AUTO) 10.2 % (2.0-12.0); NEUTROPHILS # (AUTO) 7.9 K/uL (1.8-8.9); PLATELET COUNT (AUTO) 570 K/uL (150-450); RED BLOOD CELL COUNT(AUTO) 3.42 MIL/uL (4.5-6.0); RED CELL DISTRIBUTION WIDTH 16.4 % (11.5-15.0); WHITE BLOOD COUNT (AUTO) 10.7 K/uL (4.3-11.0)
[2023-06-17 07:15] LABS: CALCIUM, SERUM 8.9 mg/dL (8.5-10.1); CREATININE 0.6 mg/dL (0.6-1.3); POTASSIUM 4.3 mmol/L (3.5-5.1)
[2023-06-17] MEDS: SUCRALFATE 1 G/10 ML UDC GT SCH ×4 (07:30→21:15)
[2023-06-17 08:00] VITALS: BP 124/66; TEMP 97.6; O2SAT 100
[2023-06-17] MEDS: PROSOURCE / PROSTAT (PYXIS) 30 ML UDC GT SCH (08:00)
[2023-06-17] MEDS: CALCIUM CARB 600MG /VIT D 1 EACH TABLET GT SCH ×2 (09:00→16:51)
[2023-06-17] MEDS: PHENYTOIN SUSP UDC 100 MG/4 ML UDC GT SCH ×2 (09:00→20:38)
[2023-06-17] MEDS: PANTOPRAZOLE 40 MG/PACK PACK NG SCH (09:00)
[2023-06-17] MEDS: AMLODIPINE BESYLATE 5 MG TABLET GT SCH (09:00)
[2023-06-17] MEDS: ENOXAPARIN SODIUM 100 MG/ML DISP.SYRIN SQ SCH (09:00)
[2023-06-17] MEDS: MULTIVIT W/MINERALS 1 TAB TABLET GT SCH (09:00)
[2023-06-17] MEDS: MAGNESIUM OXIDE 400 MG TABLET GT SCH ×2 (09:00→16:52)
[2023-06-17] MEDS: LACTULOSE 10 G/15 ML UDC (PYXIS) GT SCH ×2 (09:00→16:51)
[2023-06-17] MEDS: CARVEDILOL 12.5 MG TABLET GT SCH ×2 (09:00→20:39)
[2023-06-17] MEDS: DAKINS QUARTER STRENGTH (0.125%) 480 ML BOTTLE TOP SCH (09:39)
[2023-06-17] MEDS: CHLORHEXIDINE GLUCONATE 15 ML UDC MM SCH ×2 (09:39→18:03)
[2023-06-17] MEDS ORDERED: IV D5/ 0.9% NACL 1,000 ML IV ONE (15:30)
[2023-06-17 16:00] VITALS: BP 126/73; TEMP 98.2; O2SAT 99
[2023-06-17 20:00] VITALS: BP 117/66; TEMP 98.3; O2SAT 100
[2023-06-17] MEDS: ASCORBIC ACID 500 MG TABLET GT SCH (21:15)
[2023-06-17] MEDS: ATORVASTATIN 10 MG TABLET GT SCH (21:15)
[2023-06-18] VITALS (7 sets, daily range): BP systolic 112–126; BP diastolic 63–85; TEMP 97.7–98.6; O2SAT 94–100
[2023-06-18] MEDS: BLOOD SUGAR DIAGNOSTIC 1 EACH STRIP IN SCH ×4 (00:10→17:49)
[2023-06-18] MEDS: CEFEPIME 2 GM in IV D5W 100 ML IV SCH ×3 (05:05→20:50)
[2023-06-18 07:05] LABS: BASOPHILS % (AUTO) 0.4 % (0.0-2.0); EOSINOPHILS # (AUTO) 0.4 K/uL (0.0-0.7); EOSINOPHILS % (AUTO) 4.9 % (0.0-6.0); HEMATOCRIT 28 % (39-51); HEMOGLOBIN 9.2 g/dL (13.5-17.5); LYMPHOCYTES % (AUTO) 11.9 % (20.0-44.0); MEAN CORPUSCULAR HEMOGLOBIN 27 PG (26.0-33.0); MEAN CORPUSCULAR HGB CONC 33 g/dl (31.0-36.0); MEAN CORPUSCULAR VOLUME 82 fL (80-96); MONOCYTES # (AUTO) 0.8 K/uL (0.1-1.30); MONOCYTES % (AUTO) 9.6 % (2.0-12.0); NEUTROPHILS # (AUTO) 6.4 K/uL (1.8-8.9); NEUTROPHILS % (AUTO) 73.2 % (43.0-81.0); PLATELET COUNT (AUTO) 524 K/uL (150-450); RED BLOOD CELL COUNT(AUTO) 3.44 MIL/uL (4.5-6.0); RED CELL DISTRIBUTION WIDTH 16.6 % (11.5-15.0); WHITE BLOOD COUNT (AUTO) 8.8 K/uL (4.3-11.0)
[2023-06-18 07:23] LABS: CALCIUM, SERUM 9.2 mg/dL (8.5-10.1); CREATININE 0.7 mg/dL (0.6-1.3); POTASSIUM 4.1 mmol/L (3.5-5.1)
[2023-06-18] MEDS: SUCRALFATE 1 G/10 ML UDC GT SCH ×4 (07:30→21:28)
[2023-06-18] MEDS: AMLODIPINE BESYLATE 5 MG TABLET GT SCH (09:00)
[2023-06-18] MEDS: LACTULOSE 10 G/15 ML UDC (PYXIS) GT SCH ×2 (09:00→16:38)
[2023-06-18] MEDS: MAGNESIUM OXIDE 400 MG TABLET GT SCH ×2 (09:00→16:42)
[2023-06-18] MEDS: PHENYTOIN SUSP UDC 100 MG/4 ML UDC GT SCH ×2 (09:00→20:51)
[2023-06-18] MEDS: MULTIVIT W/MINERALS 1 TAB TABLET GT SCH (09:00)
[2023-06-18] MEDS: PANTOPRAZOLE 40 MG/PACK PACK NG SCH (09:00)
[2023-06-18] MEDS: CALCIUM CARB 600MG /VIT D 1 EACH TABLET GT SCH ×2 (09:00→16:38)
[2023-06-18] MEDS: CARVEDILOL 12.5 MG TABLET GT SCH ×2 (09:00→20:52)
[2023-06-18] MEDS: PROSOURCE / PROSTAT (PYXIS) 30 ML UDC GT SCH (09:23)
[2023-06-18] MEDS: CHLORHEXIDINE GLUCONATE 15 ML UDC MM SCH ×2 (09:27→16:38)
[2023-06-18] MEDS: DAKINS QUARTER STRENGTH (0.125%) 480 ML BOTTLE TOP SCH (09:28)
[2023-06-18] MEDS: VANCOMYCIN HCL 0.75 GM in IV D5W 250 ML IV SCH ×2 (12:16→14:22)
[2023-06-18] MEDS ORDERED: MIDAZOLAM HCL 2 MG/2ML VIAL IV PRN (12:30)
[2023-06-18] MEDS ORDERED: FENTANYL PF 250MCG/5ML AMPUL IV PRN (12:30)
[2023-06-18] MEDS ORDERED: NALOXONE PREFILLED SYRINGE 2 MG/2 ML SYRINGE IV PRN (12:30)
[2023-06-18] MEDS ORDERED: FLUMAZENIL 0.5 MG VIAL IV PRN (12:30)
[2023-06-18 13:15] LABS: INR 1.13 (0.91-1.10); PARTIAL THROMBOPLASTIN TIME 22.8 SEC (24.3-34.3); PROTHROMBIN TIME 11.9 SECS (9.2-11.1)
[2023-06-18] MEDS: GLUCERNA 1.2 1,000 ML BOTTLE NG PRN (17:25)
[2023-06-18] MEDS: ASCORBIC ACID 500 MG TABLET GT SCH (21:28)
[2023-06-18] MEDS: ATORVASTATIN 10 MG TABLET GT SCH (21:28)
[2023-06-19] VITALS: BP 125/69; TEMP 98.6; O2SAT 100
[2023-06-19] MEDS: VANCOMYCIN HCL 0.75 GM in IV D5W 250 ML IV SCH ×2 (00:20→13:08)
[2023-06-19] MEDS: BLOOD SUGAR DIAGNOSTIC 1 EACH STRIP IN SCH ×4 (00:25→17:56)
[2023-06-19] MEDS: INSULIN REGULAR, HUMAN 100 UNIT/ML 3 ML VIAL SQ PRN ×2 (00:26→06:05)
[2023-06-19 00:44] VITALS: BP 125/69; TEMP 98.6; O2SAT 100
[2023-06-19 04:00] VITALS: BP 131/62; TEMP 98.6; O2SAT 100
[2023-06-19 04:23] VITALS: BP 131/62; TEMP 98.6; O2SAT 100
[2023-06-19] MEDS: CEFEPIME 2 GM in IV D5W 100 ML IV SCH ×2 (04:34→13:08)
[2023-06-19 06:40] LABS: BASOPHILS % (AUTO) 0.5 % (0.0-2.0); EOSINOPHILS # (AUTO) 0.4 K/uL (0.0-0.7); EOSINOPHILS % (AUTO) 4.1 % (0.0-6.0); HEMATOCRIT 27 % (39-51); HEMOGLOBIN 8.7 g/dL (13.5-17.5); LYMPHOCYTES % (AUTO) 10.4 % (20.0-44.0); MEAN CORPUSCULAR HEMOGLOBIN 27 PG (26.0-33.0); MEAN CORPUSCULAR HGB CONC 33 g/dl (31.0-36.0); MEAN CORPUSCULAR VOLUME 82 fL (80-96); MONOCYTES # (AUTO) 1.2 K/uL (0.1-1.30); MONOCYTES % (AUTO) 11.8 % (2.0-12.0); NEUTROPHILS # (AUTO) 7.2 K/uL (1.8-8.9); NEUTROPHILS % (AUTO) 73.2 % (43.0-81.0); PLATELET COUNT (AUTO) 496 K/uL (150-450); RED BLOOD CELL COUNT(AUTO) 3.25 MIL/uL (4.5-6.0); RED CELL DISTRIBUTION WIDTH 16.5 % (11.5-15.0); WHITE BLOOD COUNT (AUTO) 9.8 K/uL (4.3-11.0)
[2023-06-19 07:03] LABS: CREATININE 0.6 mg/dL (0.6-1.3); POTASSIUM 4.3 mmol/L (3.5-5.1)
[2023-06-19] MEDS: CARVEDILOL 12.5 MG TABLET GT SCH (09:00)
[2023-06-19] MEDS: AMLODIPINE BESYLATE 5 MG TABLET GT SCH (09:00)
[2023-06-19] MEDS: PANTOPRAZOLE 40 MG/PACK PACK NG SCH (10:06)
[2023-06-19] MEDS: MULTIVIT W/MINERALS 1 TAB TABLET GT SCH (10:07)
[2023-06-19] MEDS: CALCIUM CARB 600MG /VIT D 1 EACH TABLET GT SCH ×2 (10:07→17:54)
[2023-06-19] MEDS: MAGNESIUM OXIDE 400 MG TABLET GT SCH ×2 (10:08→17:58)
[2023-06-19] MEDS: LACTULOSE 10 G/15 ML UDC (PYXIS) GT SCH ×2 (10:08→17:54)
[2023-06-19] MEDS: PHENYTOIN SUSP UDC 100 MG/4 ML UDC GT SCH (10:09)
[2023-06-19] MEDS: SUCRALFATE 1 G/10 ML UDC GT SCH ×3 (10:09→17:54)
[2023-06-19] MEDS: CHLORHEXIDINE GLUCONATE 15 ML UDC MM SCH ×2 (10:09→17:54)
[2023-06-19] MEDS: PROSOURCE / PROSTAT (PYXIS) 30 ML UDC GT SCH (10:10)
[2023-06-19] MEDS: DAKINS QUARTER STRENGTH (0.125%) 480 ML BOTTLE TOP SCH (10:11)
[2023-06-19 12:00] VITALS: BP 125/59; TEMP 98.6; O2SAT 100
[2023-06-19 16:34] VITALS: BP 128/58; TEMP 98.1; O2SAT 100
[2023-06-19] MEDS ORDERED: RIVAROXABAN 15 MG TABLET PO SCH (17:00)
== END 2023-06-19 19:48 | DRG 710 ==
LOC: ER 20:58 → TELE 23:38
PROVIDERS: ADMIT Nurse Practitioner Acute Care; ATTEND Internal Medicine
PROC: 5A1955Z Respiratory Ventilation, Greater than 96 Consecutive Hours (ICD-10-PCS; principal; 2023-06-07)
PROC: 0KBN0ZZ Excision of Right Hip Muscle, Open Approach (ICD-10-PCS; 2023-06-09)
PROC: 0KBP0ZZ Excision of Left Hip Muscle, Open Approach (ICD-10-PCS; 2023-06-09)
PROC: 05H533Z Insertion of Infusion Device into Right Subclavian Vein, Percutaneous Approach (ICD-10-PCS; 2023-06-12)
PROC: B546ZZA Ultrasonography of Right Subclavian Vein, Guidance (ICD-10-PCS; 2023-06-12)
PROC: 0KBP0ZZ Excision of Left Hip Muscle, Open Approach (ICD-10-PCS; 2023-06-16)
PROC: 0KBN0ZZ Excision of Right Hip Muscle, Open Approach (ICD-10-PCS; 2023-06-16)
PROC: 0BDG4ZX Extraction of Left Upper Lung Lobe, Percutaneous Endoscopic Approach, Diagnostic (ICD-10-PCS; 2023-06-18)
DX: A41.9 Sepsis, unspecified organism (principal); J96.21 Acute and chronic respiratory failure with hypoxia; G93.41 Metabolic encephalopathy; J15.9 Unspecified bacterial pneumonia; L89.154 Pressure ulcer of sacral region, stage 4; E22.2 Syndrome of inappropriate secretion of antidiuretic hormone; I82.411 Acute embolism and thrombosis of right femoral vein; Z99.11 Dependence on respirator [ventilator] status; Z93.0 Tracheostomy status; D68.69 Other thrombophilia; E11.9 Type 2 diabetes mellitus without complications; K21.9 Gastro-esophageal reflux disease without esophagitis; D63.8 Anemia in other chronic diseases classified elsewhere; D50.9 Iron deficiency anemia, unspecified; D75.839 Thrombocytosis, unspecified; G40.909 Epilepsy, unspecified, not intractable, without status epilepticus; I10 Essential (primary) hypertension; I48.91 Unspecified atrial fibrillation; R13.10 Dysphagia, unspecified; Z74.01 Bed confinement status; Z79.01 Long term (current) use of anticoagulants; Z86.73 Personal history of transient ischemic attack (TIA), and cerebral infarction without residual deficits; Z93.1 Gastrostomy status; E78.5 Hyperlipidemia, unspecified; Z20.822 Contact with and (suspected) exposure to COVID-19; M24.562 Contracture, left knee; M24.561 Contracture, right knee; M24.521 Contracture, right elbow; E86.1 Hypovolemia; Z93.6 Other artificial openings of urinary tract status; R91.8 Other nonspecific abnormal finding of lung field; Z79.4 Long term (current) use of insulin
CPT/HCPCS: 31720; 36410; 36415; 71045-TC; 71250-TC; 71260-TC; 77012-TC; 80048-TC; 80202-TC; 82378; 82607-TC; 82728-TC; 82784; 82962-TC; 83540-TC; 83605-TC; 83615-TC; 83735-TC; 83880; 84100-TC; 84155; 84165; 84443-TC; 84484-TC; 84550-TC; 85025-TC; 85610-TC; 85730-TC; 86334; 87040-TC; 87081-TC; 93970-TC; 94002-TC; 94003-TC; 94760-TC; 94762-TC; 94799-TC; 99082-TC; A4223; A4349; A4623; A6253; A6403; A7526; C9113; C9803; G0378; J0692; J1650; J1815; J2250; J2543; J2916; J3010; J3370; J3490; J7030; J7040; J7042; J7050; J7060; Q9967

== ENCOUNTER 2023-07-30 08:20 | Emergency (ER) | payer MEDICAID, OTHER ==
[~2023-07-30] VITALS: Ht 172.7 cm; Wt 88.9 kg
[~2023-07-30 08:20] MED LIST: ALBU2.5V13 NEB; AMLO-212 GT; ASCO500W7 PO; ATOR20TA GT; CALC-770 GT; CARV12.52 GT; CHLO473M3 MM; CHOL400T2; CLOP75TA15 GT; HYDR-4075 GT; LACT10SO3 GT; MAGN400T8 GT; MULT9LIQ6 GT; PANT40TA49 PO; PHEN100C4 PO; RIVA10TA PO; SUCR1ORA15 GT
[2023-07-30 08:23] VITALS: TEMP 98.5
[2023-07-30] MEDS ORDERED: SODIUM BICARBONATE SYR 50 MEQ/50 ML DISP.SYRIN IV ONE (08:33)
[2023-07-30] MEDS ORDERED: EPINEPHRINE (1:10,000) SYRINGE 1 MG/10 ML DISP.SYRIN IVP ONE (08:33)
[2023-07-30 09:25] LABS: BASOPHILS % (AUTO) 0.1 % (0.0-2.0); HEMATOCRIT 29 % (39-51); LYMPHOCYTES # (AUTO) 0.5 K/uL (0.8-4.8); LYMPHOCYTES % (AUTO) 1.9 % (20.0-44.0); MEAN CORPUSCULAR HEMOGLOBIN 24 PG (26.0-33.0); MEAN CORPUSCULAR HGB CONC 31 g/dl (31.0-36.0); MEAN CORPUSCULAR VOLUME 78 fL (80-96); MONOCYTES # (AUTO) 1.3 K/uL (0.1-1.30); NEUTROPHILS # (AUTO) 24.3 K/uL (1.8-8.9); PLATELET COUNT (AUTO) 614 K/uL (150-450); RED CELL DISTRIBUTION WIDTH 17.5 % (11.5-15.0); WHITE BLOOD COUNT (AUTO) 26.2 K/uL (4.3-11.0)
[2023-07-30 09:28] LABS: CALCIUM, SERUM 9.3 mg/dL (8.5-10.1); CARBON DIOXIDE 29 mmol/L (21-32); CHLORIDE 95 mmol/L (98-107); CREATININE 1.3 mg/dL (0.6-1.3); GLUCOSE 156 mg/dL (74-106); POTASSIUM 3.9 mmol/L (3.5-5.1); SODIUM SERUM 133 mmol/L (136-145); UREA NITROGEN, BLOOD 20 mg/dL (7-18)
[2023-07-30 09:40] LABS: ALANINE AMINOTRANSFERASE 24 U/L (12-78); ALBUMIN 2.6 g/dL (3.4-5.0); ALKALINE PHOSPHATASE 84 U/L (46-116); ASPARTATE AMINOTRANSFERASE 14 U/L (15-37); BILIRUBIN,DIRECT 0.1 mg/dL (0.0-0.2); BILIRUBIN,TOTAL 0.2 mg/dL (0.2-1.0); NT-PRO BNP 1889 pg/mL (0-125); TOTAL PROTEIN, SERUM 9.1 g/dL (6.4-8.2)
[2023-07-30] MEDS: PIPERACILLIN /TAZOBACTAM 3.375 G in IV D5W 50 ML IV ONE (10:29)
[2023-07-30] MEDS: IV NS 0.9% 1,000 ML BAG IV ONE ×2 (10:38→11:14)
[2023-07-30] MEDS ORDERED: ALBU2.5V13 IH (10:39)
[2023-07-30] MEDS ORDERED: BISA10SU11 RC (10:39)
[2023-07-30] MEDS ORDERED: ACET-2605 GT (10:39)
[2023-07-30] MEDS ORDERED: ASCO-340 GT (10:39)
[2023-07-30] MEDS ORDERED: CRAN3875 GT (10:39)
[2023-07-30] MEDS ORDERED: NUT.237L30 GT (10:39)
[2023-07-30] MEDS ORDERED: PHEN125O9 GT (10:39)
[2023-07-30] MEDS ORDERED: RIVA10TA GT (10:39)
[2023-07-30] MEDS ORDERED: NA P133E RC (10:39)
[2023-07-30] MEDS ORDERED: INSU100V39 SQ (10:39)
[2023-07-30] MEDS ORDERED: ACET-868 GT (10:39)
[2023-07-30] MEDS ORDERED: DOCU100T2 GT (10:39)
[2023-07-30] MEDS ORDERED: AMIN30LI66 GT (10:39)
[2023-07-30] MEDS ORDERED: MAGN400O6 GT (10:39)
[2023-07-30] MEDS ORDERED: PETR113O TP (10:39)
[2023-07-30 10:40] LABS: ABG BASE EXCESS -7.1 mmol/L; ABG OXYGEN SATURATION 99.6 % (92.0-98.5); ABG PCO2 63.7 mmHg (35.0-45.0); ABG PH 7.152 (7.350-7.450); ABG PO2 445.4 mmHg (75.0-100.0); ABG TOTAL HEMOGLOBIN 9.3 G/dL (13.5-18.0); COHb 0.3 % (0.5-1.5); MetHb 0.3 % (0.0-1.5); SITE, ABG Right Radial; VENT MODE, BG AC 22 450 100% +0
[2023-07-30] MEDS: AZITHROMYCIN 500 MG in IV D5W 250 ML IV ONE (10:40)
[2023-07-30] MEDS ORDERED: NOREPINEPHRINE 8MG/250ML RTU 250 ML IV ONE (10:43)
[2023-07-30] MEDS ORDERED: Z GUARD REMEDY 4 OZ OINT TP PRN (11:00)
[2023-07-30] MEDS ORDERED: ONDANSETRON HCL/PF 4 MG/2 ML VIAL IVP PRN (11:00)
[2023-07-30] MEDS ORDERED: MAG HYDROX/AL HYDROX/SIMETH 30 ML UDC PO PRN (11:00)
[2023-07-30] MEDS ORDERED: ACETAMINOPHEN 325 MG TABLET PO PRN (11:00)
[2023-07-30] MEDS ORDERED: MAGNESIUM HYDROXIDE 30 ML UDC PO PRN (11:00)
[2023-07-30] MEDS ORDERED: ZOLPIDEM TARTRATE 5 MG TABLET PO PRN (11:00)
[2023-07-30] MEDS: NOREPINEPHRINE 8 MG in IV D5W 242 ML IV PRN (11:00)
[2023-07-30] MEDS ORDERED: ENOXAPARIN SODIUM 40 MG/0.4 ML DISP.SYRIN SQ SCH (11:00)
[2023-07-30] MEDS ORDERED: IV NS 0.9% 1,000 ML IV PRN (11:00)
[2023-07-30] MEDS: VANCOMYCIN 1 GM in IV D5W 250 ML IV ONE (11:16)
[2023-07-30 11:30] VITALS: BP 115/82; O2SAT 96
[2023-07-30] MEDS ORDERED: EPINEPHRINE (1:10,000) SYRINGE 1 MG/10 ML DISP.SYRIN ONE (11:41)
[2023-07-30] MEDS ORDERED: SODIUM BICARBONATE SYR 50 MEQ/50 ML DISP.SYRIN ONE (11:43)
[2023-07-30 12:27] LABS: ANISOCYTOSIS 1+; BAND % (MANUAL) 20 % (0.0-5.0); BASOPHILS % (MANUAL) 0 % (0.0-2.0); EOSINOPHILS % (MANUAL) 0 % (0-4); LYMPHOCYTES % (MANUAL) 3 % (16-48); MONOCYTES % (MANUAL) 5 % (0-11.0); NEUTROPHILS % (MANUAL) 72 (42-76); PLATELET ESTIMATE ADEQUATE
[2023-07-31] MEDS ORDERED: PANTOPRAZOLE 40 MG VIAL IV SCH (09:00)
== END 2023-07-30 13:04 ==
LOC: ER 08:32
DX: J18.9 Pneumonia, unspecified organism (principal)
CPT/HCPCS: 99291; 92950; 96365; 71045; 82803; 85025; 80048; 87040; 80076; 36415; 84484 ×2; 83880; 36600 ×2; 96368; 93005; 85007; J0171 ×2; J3490 ×2; J3370; J2543; J7060; J7030; J7040; J0456; A4223